=== PATIENT | male | born 1960 | race Hispanic/Latino ===

== ENCOUNTER → 2021-06-16 | Day surgery (SDC) | payer BC ==
[~2021-06-16] MED LIST: FUROSEMIDE 40 MG/4 ML VIAL ONE; NA CHLORIDE 0.9% 1,000 ML ONE; NA CHLORIDE 0.9% 250 ML ONE
[2021-06-16 11:36] LABS: Hematocrit 21.9 % (39.6-49.0)
[2021-06-16 13:07] VITALS: O2SAT 100; BMI 28.3
[2021-06-16 15:02] VITALS: BP 114/53
[2021-06-16 15:05] VITALS: TEMP 98.5
[2021-06-16 20:13] LABS: Hematocrit 27.3 % (39.6-49.0)
== END ==
LOC: DS 10:35
PROVIDERS: ATTEND Internal Medicine Gastroenterology
DX: D50.0 Iron deficiency anemia secondary to blood loss (chronic) (principal); R18.8 Other ascites; K74.60 Unspecified cirrhosis of liver
CPT/HCPCS: 36415; 86900; 86850; 86901; 85018 ×2; 85014 ×2; 36430; J1940; P9016 ×2; J7050 ×2; J7030

== ENCOUNTER 2021-07-21 16:59 | Day surgery (SDC) | payer BC ==
[2021-07-21] MEDS ORDERED: NA CHLORIDE 0.9% 500 ML ONE (20:39)
[2021-07-21 20:50] VITALS: BMI 27.4
[2021-07-21 20:51] VITALS: TEMP 98; O2SAT 100
[2021-07-21] MEDS ORDERED: FUROSEMIDE 20 MG/ 2ML VIAL IV PRN (23:40)
[2021-07-22 00:21] VITALS: BP 125/67
[2021-07-22 03:41] LABS: Hematocrit 27.1 % (39.6-49.0)
== END 2021-07-22 03:57 | disposition home or self-care (01) ==
LOC: DS 16:59 → 2ND 19:22 → DS 07-22 03:57
PROVIDERS: ATTEND Internal Medicine Gastroenterology
DX: D50.0 Iron deficiency anemia secondary to blood loss (chronic) (principal); K74.60 Unspecified cirrhosis of liver; D50.9 Iron deficiency anemia, unspecified
CPT/HCPCS: 36430; 36415; 86900; 86850; 86901; 85018; 85014; J1940; P9016 ×2; J7050